=== PATIENT | male | born 1970 | race Caucasian/White ===

== ENCOUNTER 2017-09-03 17:36 | Emergency (ER) | payer SELFPAY ==
[2017-09-03 17:52] VITALS: BP 133/68; PULSE 53; TEMP 97; BMI 24.3
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
== END 2017-09-03 19:24 | disposition home or self-care (01) ==
LOC: JERFT 17:36
DX: S16.1XXA Strain of muscle, fascia and tendon at neck level, initial encounter (principal); M54.5 Low back pain; S46.919A Strain of unspecified muscle, fascia and tendon at shoulder and upper arm level, unspecified arm, initial encounter; V43.52XA Car driver injured in collision with other type car in traffic accident, initial encounter; Y93.89 Activity, other specified; Y92.410 Unspecified street and highway as the place of occurrence of the external cause; J45.909 Unspecified asthma, uncomplicated
CPT/HCPCS: 99281-25